=== PATIENT | male | born 1965 | race Caucasian/White ===

== ENCOUNTER 2018-10-16 04:06 | Inpatient (IN) | payer MEDICAID ==
[2018-10-16] MEDS: morphine 4 MG/ML VIAL IV ×2 (04:28→05:24)
[2018-10-16] MEDS: ONDANSETRON 4 MG INJ IV ×2 (04:28→18:10)
[2018-10-16 05:18] LABS: ADD MAN DIFF? NO
[2018-10-16 05:23] LABS: BASOPHIL # 0.1 10^3/ul (0.0-0.1); BASOPHILS % 0.7 % (0.0-2.0); EOSINOPHILS # 0.2 10^3/ul (0.0-0.5); HEMATOCRIT 39.8 % (42.0-52.0); LYMPHOCYTES # 2.8 10^3/ul (0.8-2.9); LYMPHOCYTES % 37.5 % (15.0-51.0); MEAN CORPUSCULAR HEMOGLOBIN 29.2 pg (29.0-33.0); MEAN CORPUSCULAR HGB CONC 32.7 g/dl (32.0-37.0); MEAN CORPUSCULAR VOLUME 89.4 fl (82.0-101.0); MEAN PLATELET VOLUME 11.5 fl (7.4-10.4); MONOCYTE # 0.6 10^3/ul (0.3-0.9); MONOCYTES % 8.1 % (0.0-11.0); NEUTROPHIL # 3.8 10^3/ul (1.6-7.5); NEUTROPHILS % 51.2 % (39.0-77.0); PLATELET COUNT 173 10^3/UL (140-415); RED BLOOD COUNT 4.45 10^6/ul (4.70-6.10); RED CELL DISTRIBUTION WIDTH 13.3 % (11.5-14.5)
[2018-10-16 05:23] LABS: WHITE BLOOD COUNT 7.5 10^3/ul (4.8-10.8)
[2018-10-16 05:26] LABS: ANION GAP 12 (5-13); BLOOD UREA NITROGEN 14 mg/dl (7-20); CALCIUM 9.3 mg/dl (8.4-10.2); CARBON DIOXIDE 24 mmol/L (21-31); CHLORIDE 109 mmol/L (97-110); CREATININE 0.87 mg/dl (0.61-1.24); Estimated GFR > 60 mL/min (>60); GLUCOSE 111 mg/dl (70-220); POTASSIUM 3.7 mmol/L (3.5-5.1); SODIUM 145 mmol/L (135-144)
[2018-10-16 05:38] LABS: TROPONIN-I < 0.012 ng/ml (0.000-0.120)
[2018-10-16] MEDS: PROPOFOL 200 MG INJ IV (05:39)
[2018-10-16] MEDS ORDERED: ONDANSETRON 4 MG INJ IV (07:00)
[2018-10-16] MEDS ORDERED: morphine 4 MG/ML VIAL IV (07:00)
[2018-10-16] MEDS ORDERED: NACL 0.9% 3 ML SYG IV (07:00)
[2018-10-16] MEDS ORDERED: ALBUTEROL/IPRATROPIUM (NEB) 3 ML AMP HHN (07:00)
[2018-10-16] MEDS: HYDROmorphONE 1 MG/ML SYG IV ×3 (07:36→20:16)
[2018-10-16] MEDS: DEXTROSE 5%-0.45% NACL 1,000 ML IV ×3 (09:25→19:44)
[2018-10-16 11:48] LABS: CREATINE KINASE 109 IU/L (23-200)
[2018-10-16] MEDS: ACETAMINOPHEN 325 MG TAB PO (11:55)
[2018-10-16 11:58] LABS: CK INDEX 0.5; CK-MB 0.54 ng/ml (0.0-2.4); TROPONIN-I < 0.012 ng/ml (0.000-0.120)
[2018-10-16] MEDS: CEFTRIAXONE 1 GM/50 ML (PMX) 50 ML IVPB (12:52)
[2018-10-16 18:03] LABS: CREATINE KINASE 110 IU/L (23-200)
[2018-10-16 18:14] LABS: CK INDEX 0.4; CK-MB 0.47 ng/ml (0.0-2.4); TROPONIN-I < 0.012 ng/ml (0.000-0.120)
[2018-10-17] MEDS: HYDROmorphONE 1 MG/ML SYG IV ×3 (01:15→09:28)
[2018-10-17] MEDS: DEXTROSE 5%-0.45% NACL 1,000 ML IV ×4 (02:56→22:56)
[2018-10-17 05:18] LABS: ADD MAN DIFF? NO
[2018-10-17 05:21] LABS: WHITE BLOOD COUNT 9.7 10^3/ul (4.8-10.8)
[2018-10-17 05:21] LABS: BASOPHILS % 0.3 % (0.0-2.0); EOSINOPHILS # 0.2 10^3/ul (0.0-0.5); EOSINOPHILS % 2.5 % (0.0-7.0); HEMATOCRIT 39.7 % (42.0-52.0); HEMOGLOBIN 12.6 g/dl (14.0-18.0); LYMPHOCYTES # 2.5 10^3/ul (0.8-2.9); MEAN CORPUSCULAR HEMOGLOBIN 28.3 pg (29.0-33.0); MEAN CORPUSCULAR HGB CONC 31.7 g/dl (32.0-37.0); MEAN CORPUSCULAR VOLUME 89.2 fl (82.0-101.0); MEAN PLATELET VOLUME 11.5 fl (7.4-10.4); MONOCYTE # 0.8 10^3/ul (0.3-0.9); MONOCYTES % 7.7 % (0.0-11.0); NEUTROPHIL # 6.1 10^3/ul (1.6-7.5); NEUTROPHILS % 63.1 % (39.0-77.0); PLATELET COUNT 177 10^3/UL (140-415); RED BLOOD COUNT 4.45 10^6/ul (4.70-6.10); RED CELL DISTRIBUTION WIDTH 13.6 % (11.5-14.5)
[2018-10-17 06:31] LABS: ALANINE AMINOTRANSFERASE 39 IU/L (13-69); ALBUMIN 3.9 g/dl (3.3-4.9); ALBUMIN/GLOBULIN RATIO 1.11; ALKALINE PHOSPHATASE 80 IU/L (42-121); ANION GAP 9 (5-13); ASPARTATE AMINO TRANSFERASE 21 IU/L (15-46); BILIRUBIN,INDIRECT 0.9 mg/dl (0-1.1); BILIRUBIN,TOTAL 0.9 mg/dl (0.2-1.3); BLOOD UREA NITROGEN 12 mg/dl (7-20); CALCIUM 8.7 mg/dl (8.4-10.2); CARBON DIOXIDE 29 mmol/L (21-31); CHLORIDE 101 mmol/L (97-110); Estimated GFR > 60 mL/min (>60); GLUCOSE 111 mg/dl (70-220); MAGNESIUM 1.8 mg/dl (1.7-2.5); PHOSPHORUS 3.6 mg/dl (2.5-4.9); SODIUM 139 mmol/L (135-144); TOTAL PROTEIN 7.4 g/dl (6.1-8.1)
[2018-10-17] MEDS: CEFTRIAXONE 1 GM/50 ML (PMX) 50 ML IVPB (12:16)
[2018-10-17] MEDS ORDERED: PROPOFOL 20 ML (13:50)
[2018-10-17] MEDS ORDERED: CEFAZOLIN 1 GM INJ (13:50)
[2018-10-17] MEDS ORDERED: ROCURONIUM 50 MG INJ (13:50)
[2018-10-17] MEDS ORDERED: GLYCOPYRROLATE 0.4 MG INJ (13:50)
[2018-10-17] MEDS ORDERED: NEOSTIGMINE 3 MG/3 ML SYRINGE (13:50)
[2018-10-17] MEDS ORDERED: FENTAnyl 50 MCG/ML VIAL (13:51)
[2018-10-17] MEDS ORDERED: MIDAZOLAM 1 MG/ML 2 ML INJ (13:51)
[2018-10-17] MEDS ORDERED: DEXAMETHASONE 4 MG/ML 5 ML INJ (13:59)
[2018-10-17] MEDS ORDERED: ROPIVACAINE 0.5 % 30 ML VIAL (13:59)
[2018-10-17] MEDS ORDERED: ONDANSETRON 4 MG INJ (13:59)
[2018-10-17] MEDS ORDERED: morphine 4 MG/ML VIAL IV (16:30)
[2018-10-17] MEDS: D5W-0.45 NACL + KCL 20 MEQ 1,000 ML IV (21:08)
[2018-10-17] MEDS ORDERED: CEFAZOLIN 1 GM/50 ML (PMX) 50 ML IVPB (22:00)
[2018-10-18] MEDS: D5W-0.45 NACL + KCL 20 MEQ 1,000 ML IV ×3 (02:13→08:54)
[2018-10-18] MEDS: DEXTROSE 5%-0.45% NACL 1,000 ML IV (08:54)
[2018-10-18] MEDS: ENOXAPARIN 40 MG/0.4 ML SYG SC (08:55)
[2018-10-18] MEDS: HYDROCODONE/APAP (5/325) TAB PO ×2 (10:44→15:59)
[2018-10-18] MEDS: CEFTRIAXONE 1 GM/50 ML (PMX) 50 ML IVPB (13:17)
[2018-10-18] MEDS: CALCIUM CARBONATE 500 MG CHEW TAB PO (14:04)
[2018-10-18] MEDS ORDERED: IBUPROFEN 600 MG TAB PO (16:30)
== END 2018-10-18 17:50 | disposition home or self-care (01) | DRG 494 ==
LOC: E/R 04:06 → MS1 05:44
PROC: 0QSJ04Z Reposition Right Fibula with Internal Fixation Device, Open Approach (ICD-10-PCS; principal; 2018-10-17 13:36)
PROC: 0QSG04Z Reposition Right Tibia with Internal Fixation Device, Open Approach (ICD-10-PCS; 2018-10-17 13:36)
PROC: 0QSGXZZ Reposition Right Tibia, External Approach (ICD-10-PCS; 2018-10-17 13:36)
DX: S82.851A Displaced trimalleolar fracture of right lower leg, initial encounter for closed fracture (principal); K04.7 Periapical abscess without sinus; E66.9 Obesity, unspecified; Y04.0XXA Assault by unarmed brawl or fight, initial encounter; Y92.511 Restaurant or cafe as the place of occurrence of the external cause; Z68.28 Body mass index [BMI] 28.0-28.9, adult
CPT/HCPCS: 71045; 73600; 73610-RT; 80048; 80053; 82550; 82553; 83735; 84100; 84484; 85025; 93005; 94770; 96374; 96375; 96376; 97116; 97161; 99285-25